=== PATIENT | female | born 1965 | race Caucasian/White ===

== ENCOUNTER 2022-04-30 05:28 | Outpatient (CLI) | payer BC ==
[~2022-04-30] VITALS: Ht 162.6 cm; Wt 95.9 kg
[2022-05-01] MEDS ORDERED: ASPI-808 PO (16:41)
[2022-05-01] MEDS ORDERED: ELET40TA8 PO (16:41)
[2022-05-01] MEDS ORDERED: DIPH25CA79 PO (16:41)
== END 2022-05-01 16:43 | disposition home or self-care (01) ==
LOC: PREOP 05:28
PROVIDERS: ATTEND Obstetrics & Gynecology
DX: Z01.818 Encounter for other preprocedural examination (principal)

== ENCOUNTER 2022-05-07 08:03 | Day surgery (SDC) | payer BC ==
[~2022-05-07] VITALS: Ht 162 cm; Wt 95.9 kg
[2022-05-07] VITALS (9 sets, daily range): BP systolic 132–146; BP diastolic 75–95
[~2022-05-07 08:03] MED LIST: ASPI-808 PO; DIPH25CA79 PO; ELET40TA8 PO
[2022-05-07] MEDS ORDERED: BUPIVACAINE 0.25% 30 ML (SENSORCAINE) VIAL ONE (08:07)
[2022-05-07] MEDS ORDERED: LACTATED RINGERS 1,000 ML IV PRN (08:15)
[2022-05-07] MEDS ORDERED: BUPIVACAINE 0.25% 30 ML (SENSORCAINE) VIAL INJ ONE (08:19)
[2022-05-07] MEDS ORDERED: MIDAZOLAM 2 MG/2 ML (VERSED) VIAL ONE (08:36)
--- NOTE | 2022-05-07 08:54 | Progress Note-Pre Operative ---
Pre-Operative Progress Note Date of Available H&P: May 07, 2022 Date H&P Reviewed: May 07, 2022 Time H&P Reviewed: 08:40 History & Physical: H&P Reviewed, Patient Examed, No changes noted Pre-Operative Diagnosis: AUB, Thickened endometrium LUKAS NGUYEN DO May 07, 2022 08:54
[2022-05-07] MEDS ORDERED: LIDOCAINE PF 2% 5 ML (XYLOCAINE) VIAL ONE (08:55)
[2022-05-07] MEDS ORDERED: fentaNYL INJ 100 MCG/2 ML AMP ONE (08:55)
[2022-05-07] MEDS ORDERED: SEVOFLURANE (ULTANE) 15 ML INHAL SOLN ONE ×2 (08:55→09:26)
[2022-05-07] MEDS ORDERED: ONDANSETRON 4 MG/2 ML (SDV) Z0FRAN ONE (08:55)
[2022-05-07] MEDS ORDERED: proPOfol 200 MG/20 ML (DIPRIVAN) VIAL IV ONE (08:55)
--- NOTE | 2022-05-07 08:58 | Discharge Inst-Women's Service ---
Discharge Inst-Women's Serv Depart Medication/Instructions New, Converted or Re-Newed RX: Other (continue home meds. Take OTC Ibuprophen as needed for pain.) Consults/Follow Up Additional Follow Up: Yes Orders/Referrals Dr. Nguyen/Lynne in 2 weeks Activity Activity: Activity as Tolerated Driving Instructions: No Driving for 1 Week NO SMOKING: NO SMOKING Nothing Inside Vagina: No Douching, No Brea, No Tampons Diet Discharge Diet: No Restrictions Symptoms to Report to : Bleeding Excessive, Pain Increased, Fever Over 101 Degrees F, Vaginal Bleeding Increase, Questions/Concerns For Any Problems or Questions: Contact Your Physician Skin/Wound Care Infection Signs and Symptoms: Increased Redness, Foul Odor of Wound, Increased Drainage, Skin Itchy or Has a Rash, Increased Swelling, Temperature Above 101 F Operative Area Clean and Dry: Keep Incision Clean/Dry LUKAS NGUYEN DO May 07, 2022 08:58
[2022-05-07] MEDS ORDERED: ONDANSETRON 4 MG/2 ML (SDV) Z0FRAN IVP PRN ×2 (09:00→09:45)
[2022-05-07] MEDS ORDERED: D5 LR IV SOLUTION 1,000 ML IV SCH (09:00)
[2022-05-07] MEDS ORDERED: KETOROLAC 30 MG/ML VIAL IVP ONE (09:00)
[2022-05-07] MEDS ORDERED: HYDROcodone/APAP 5 MG/325 MG (LORTAB) TAB PO PRN (09:00)
[2022-05-07] MEDS ORDERED: KETOROLAC 30 MG/ML VIAL ONE (09:22)
--- NOTE | 2022-05-07 09:43 | Anesthesia-General Post-Op ---
General Patient Condition Mental Status/LOC: Same as Preop Cardiovascular: Satisfactory Nausea/Vomiting: Absent Respiratory: Satisfactory Pain: Controlled Complications: Absent Post Op Complications Complications None Follow Up Care/Instructions Patient Instructions None needed. Anesthesia/Patient Condition Patient Condition Patient is doing well, no complaints, stable vital signs, no apparent adverse anesthesia problems. No complications reported per nursing. [place] [facility] [place] Yes MAYA LAMB CRNA May 07, 2022 09:43
[2022-05-07] MEDS ORDERED: HYDROmorphone 2 MG/ML VIAL (DILAUDID) IV ONE (09:45)
--- NOTE | 2022-05-07 17:28 | OPERATIVE REPORT ---
DATE OF SERVICE: 05/07/2022 PREOPERATIVE DIAGNOSES: 1. A 57-year-old female with abnormal uterine bleeding. 2. Menorrhagia. 3. Thickened endometrium on ultrasound. POSTOPERATIVE DIAGNOSES: 1. A 57-year-old female with abnormal uterine bleeding. 2. Menorrhagia. 3. Thickened endometrium on ultrasound. PROCEDURE: D and C, hysteroscopy. SURGEON: Dr. Fortunato Mackey. ANESTHESIA: LMA general. ESTIMATED BLOOD LOSS: Minimal. URINE OUTPUT: 50 mL drained at the start of the procedure. FLUIDS: 700 mL lactated Ringer's solution. FINDINGS: Grossly normal-appearing external female genitalia, grossly normal-appearing uterine wall with suspicion of polyps in the upper portion of the uterus on the right uterine wall. SPECIMEN SENT: Endometrial curettings. INDICATIONS FOR PROCEDURE: This 57-year-old female is the patient who had sought care in my office for irregular heavy periods. This has been progressively getting worse over the past several years. I discussed with the patient proceeding with endometrial biopsy in the office; however, due to the thickened endometrium, discussed with her potential curative measures the D and C would offer. I also discussed with her performing hysteroscopy, so this biopsy could be directed. Risk of the procedure were discussed with the patient in detail and after all of her questions were answered, consent was obtained, the patient was taken to the operating room. OPERATIVE REPORT IN DETAIL: Once in the operating room, anesthesia was administered and found to be adequate. She was placed in dorsal lithotomy position, prepped and draped in normal sterile fashion. Timeout was performed. The bladder was drained using straight catheterization. A weighted speculum was inserted in the patient's vagina. Right angle retractor was used to visualize the cervix which was grasped at 12 o'clock position using a long Allis clamp. I then performed paracervical block at 3 and 9 o'clock positions on the cervix. Care was taken to aspirate before injecting, 5 mL of 0.25% Marcaine were injected into each site. I then gently sound the uterine cavity, depth was found to be approximately 10 cm. I then gently dilated the cervix to maximum dilatation approximately 6 mm, at which point I advanced a hysteroscope using normal saline as a visual medium. I am able to visualize the endometrial cavity, which was filled, full of blood clots and debris. After this was cleared out, I am able to visualize the endometrial cavity, which appears to be smooth in nature. There were some polyps in the upper portion on the right side, otherwise uniform and homogenous appearing endometrium. I then removed the hysteroscope and performed a gentle curettage of all surfaces of the endometrium and collect, especially focused biopsy of the right uterine wall where the polyps were collected and this tissue was sent as endometrial curettings after which there is little to no bleeding noted from the cervix. All instruments were removed from the patient's vagina. The patient tolerated the procedure well and was taken to recovery area in stable condition. Lap and sponge counts were correct at the end of the procedure. Instrument counts correct as well. Job ID: [id number] DocumentID: [id number] Dictated Date: 05/07/2022 09:48:16 Manager Wound Date: 05/07/2022 17:27:00 Dictated By: DO KHUSHBOO RODRIGUEZ
== END 2022-05-07 11:15 | disposition home or self-care (01) ==
LOC: SDC 08:03
PROVIDERS: ATTEND Obstetrics & Gynecology
DX: N85.8 Other specified noninflammatory disorders of uterus (principal); E66.9 Obesity, unspecified; N83.292 Other ovarian cyst, left side; D25.9 Leiomyoma of uterus, unspecified; Z68.36 Body mass index [BMI] 36.0-36.9, adult
CPT/HCPCS: 84703; 86850; 86900; 86901; 87081